=== PATIENT | female | born 1985 | race Caucasian/White ===

== ENCOUNTER 2020-04-29 07:20 | Inpatient (IN) | payer OTHER ==
[2020-04-29] MEDS: DEXTROSE 5%-LACTATED RINGERS 1,000 ML IV SCH (10:15)
[2020-04-29 10:25] LABS: BASO % 0.3 % (0-2.0); EOS % 0.3 % (0-4.5); HEMATOCRIT 37.9 % (32.4-45.2); HEMOGLOBIN 12.9 GM/dL (10.7-15.3); MCH 33.5 pg (25.7-33.7); MEAN CELL VOLUME 98.7 fl (80-96); MEAN PLT VOLUME 8.9 fl (7.5-11.1); MONO % 7.6 % (3.8-10.2); NEUT % 69.8 % (42.8-82.8); PLATELET COUNT 246 K/MM3 (134-434); RBC 3.84 M/mm3 (3.60-5.2); RDW 13.3 % (11.6-15.6); WHITE BLOOD COUNT 12.7 K/mm3 (4.0-10.0)
[2020-04-29 10:33] LABS: INR 0.87 (0.83-1.09); PROTHROMBIN TIME (PATIENT) 10.3 SEC (9.7-13.0)
[2020-04-29 10:36] LABS: ACTIVATED PTT 27.3 SECONDS (25.2-36.5)
[2020-04-29 10:48] LABS: BLOOD UREA NITROGEN 9.9 mg/dL (7-18); CALCIUM 9.2 mg/dL (8.5-10.1); CREATININE 0.4 mg/dL (0.55-1.3); POTASSIUM 3.9 mmol/L (3.5-5.1)
[2020-04-29 11:04] VITALS: BMI 24.0
[2020-04-29] MEDS ORDERED: BUTORPHANOL TARTRATE 1 MG/ML VIAL IVPB ONE (12:05)
[2020-04-29] MEDS ORDERED: DINOPROSTONE 10 MG VAGINAL SUPPOSITORY VG ONE (12:07)
--- NOTE | 2020-04-29 12:10 | HP ---
Past Medical History - Admission Chief Complaint: Vaginal spotting History of Present Illness: 35 yo , @ 40 weeks gestation, EDC 04/22/20, admitted for induction of labor. She c/o vaginal spotting and mild contractions pain. She was scheduled for induction of labor today. History Source: Patient Limitations to Obtaining History: No Limitations - Past Medical History ...: 1 ...Para: 0 ...Term: 0 ...: 0 ...Spon : 0 ...Induced : 0 ...Living Children: 0 ...Multiple Gestation: 0 ...EDC by Sono: 04/22/20 - Past Surgical History Past Surgical History: Yes: None Hx Myomectomy: No Hx Transabdominal Cerclage: No - Smoking History Smoking history: Never smoked - Alcohol/Substance Use Hx Alcohol Use: No - Social History Usual Living Arrangement: Yes: With Spouse History of Recent Travel: No Home Medications - Allergies Allergies/Adverse Reactions: Allergies Allergy/AdvReac Type Severity Reaction Status Date / Time No Known Allergies Allergy Verified 04/29/20 09:25 - Home Medications Home Medications: Ambulatory Orders Vitamins (Sjr) - 1 tab PO DAILY 04/29/20 Family Medical History Family History: Unremarkable Review of Systems - Review of Systems Constitutional: reports: No Symptoms Eyes: reports: No Symptoms HENT: reports: No Symptoms Neck: reports: No Symptoms Cardiovascular: reports: No Symptoms Respiratory: reports: No Symptoms Gastrointestinal: reports: No Symptoms Genitourinary: reports: Pain, Vaginal Bleeding Breasts: reports: No Symptoms Reported Musculoskeletal: reports: No Symptoms Integumentary: reports: No Symptoms Neurological: reports: No Symptoms Psychiatric: reports: No Symptoms Pain Intensity: 2 Physical Exam - Maternity Vital Signs: Vital Signs Temperature 98.3 F 04/29/20 10:56 Pulse Rate 90 04/29/20 10:56 Respiratory Rate 17 04/29/20 10:56 Blood Pressure 121/69 04/29/20 10:56 O2 Sat by Pulse Oximetry (%) Constitutional: Yes: No Distress Eyes: Yes: Conjunctiva Clear Neck: Yes: Supple Cardiovascular: Yes: Regular Rate and Rhythm Lungs: Clear to auscultation - Abdominal Exam/OB Number of Fetuses: Single Presentation: Vertex Intensity: Mild Category: I - Vaginal Exam/OB Vaginal Bleeding: Light Presentation: Vertex/Position Station: -3 - Physical Exam Musculoskeletal: Yes: WNL Extremities: Yes: WNL ...Motor Strength: WNL Psychiatric: Yes: Alert, Oriented - Labs Lab Results: CBC, BMP 04/29/20 09:45 04/29/20 09:45 Problem List - Problems (1) Postmaturity , 40-42 weeks gestation Problems reviewed: Yes Code(s): O48.0 - POST-TERM Assessment/Plan 40 weeks gestation Admit for induction of labor Analgesia as needed
[2020-04-29] MEDS ORDERED: PROMETHAZINE HCL 25 MG/1 ML VIAL IVPUSH ONE (12:45)
[2020-04-29] MEDS ORDERED: BUTORPHANOL TARTRATE 1 MG/ML VIAL ONE ×2 (22:28)
[2020-04-29] MEDS ORDERED: PROMETHAZINE HCL 25 MG/1 ML VIAL ONE (22:29)
[2020-04-30] MEDS ORDERED: OXYTOCIN 30 UNITS in 0.9% NS 30 UNIT/500 ML INFUS.BAG IVPB ONE (04:30)
[2020-04-30] MEDS: DEXTROSE 5%-LACTATED RINGERS 1,000 ML IV SCH (05:00)
[2020-04-30] MEDS ORDERED: OXYTOCIN 20 UNITS in 0.9% NS 20 UNIT/1,000 ML INFUS.BAG IV ONE ×2 (05:25→16:43)
[2020-04-30] MEDS ORDERED: OXYTOCIN 30 UNITS in 0.9% NS 30 UNIT/500 ML INFUS.BAG IVPB SCH (07:08)
[2020-04-30] MEDS ORDERED: PROMETHAZINE HCL 25 MG/1 ML VIAL ONE (09:16)
[2020-04-30] MEDS ORDERED: BUTORPHANOL TARTRATE 1 MG/ML VIAL ONE ×2 (09:16)
--- NOTE | 2020-04-30 10:04 | PN ---
Progress Note (short form) - Note Progress Note: Patient seen and evaluated. She c/o moderate discomfort. Cervidil was removed at 10pm last night and Pitocin has started at low dose. FHR : Reassuring, positive accelerations, moderate variability. [place] : + irregular contractions. VE : /-3 Brown discharge A/P : 40 weeks gestation Status post cervidil induction Consider epidural anesthesia at 4 cm Continue Pitocin augmentation Problem List - Problems (1) Postmaturity , 40-42 weeks gestation Code(s): O48.0 - POST-TERM
[2020-04-30] MEDS ORDERED: BUTORPHANOL TARTRATE 2 MG/ML VIAL IVPUSH PRN (10:06)
[2020-04-30] MEDS ORDERED: PROMETHAZINE HCL 25 MG/1 ML VIAL IVPB PRN (10:06)
[2020-04-30] MEDS ORDERED: FENTANYL/BUPIVACAINE/NS/PF - PCEA - 50 ML DISP.SYRIN EP ONE ×2 (11:56→17:59)
[2020-04-30] MEDS ORDERED: PCA PUMP NR ONE ×2 (11:57→22:12)
[2020-04-30] MEDS ORDERED: FENTANYL/BUPIVACAINE/NS/PF - PCEA - 50 ML DISP.SYRIN EP SCH (12:35)
[2020-04-30] MEDS ORDERED: NALOXONE HCL 0.4 MG/ML VIAL IVPUSH PRN (12:46)
[2020-04-30] MEDS ORDERED: BUPIVACAINE HCL/PF 0.25% (2.5MG/ML) 10 ML VIAL ONE (14:16)
[2020-04-30] MEDS ORDERED: LIDOCAINE HCL 1% PRESERVATIVE FREE - 30ML VIAL ONE (16:44)
[2020-04-30] MEDS ORDERED: IBUPROFEN 600 MG TABLET (FP) PO PRN (19:58)
[2020-04-30] MEDS ORDERED: WITCH HAZEL 50% (TUCKS) 40 PAD/JAR PAD TP PRN (19:58)
[2020-04-30] MEDS ORDERED: METHYLERGONOVINE MALEATE 0.2 MG/1 ML AMP IM PRN (19:58)
[2020-04-30] MEDS ORDERED: ACETAMINOPHEN 325 MG TABLET (FP) PO PRN (19:58)
[2020-04-30] MEDS ORDERED: BISACODYL 10 MG SUPP.RECT RC PRN (19:58)
[2020-04-30] MEDS ORDERED: BENZOCAINE 28 GM HEMORRHOIDAL OINTMENT TP PRN (19:58)
[2020-04-30] MEDS ORDERED: BENZOCAINE 20% 57 GM BOTTLE TP PRN (19:58)
[2020-04-30] MEDS ORDERED: OXYTOCIN 20 UNITS in 0.9% NS 20 UNIT/1,000 ML INFUS.BAG IV SCH (20:00)
--- NOTE | 2020-04-30 20:01 | PN ---
Delivery - Delivery Vaginal Delivery: Spontaneous Type of Anesthesia: Epidural Episiotomy/Laceration: 2nd degree EBL (cc): 300 Delivery, Single - [place] Feeding Plan Initial Plan: Exclusive throughout hospitalization Remarks - Remarks Remarks: Normal spontaneous vaginal delivery of a live girl over second degree laceration. Nose / Oropharynx suctioned @ perineum. Cord clamped and cut. Placenta expelled spontaneously intact. Laceration repaired with 2.0 Chromic. Mother in stable condition.
[2020-04-30] MEDS: FERROUS SO4 325 MG TABLET (FP) PO SCH (23:48)
[2020-05-01 08:40] LABS: BASO % 0.2 % (0-2.0); EOS % 0.2 % (0-4.5); HEMATOCRIT 35.1 % (32.4-45.2); HEMOGLOBIN 11.9 GM/dL (10.7-15.3); LYMPH % 15.4 % (8-40); MCH 33.7 pg (25.7-33.7); MCHC 33.8 g/dl (32.0-36.0); MEAN CELL VOLUME 99.7 fl (80-96); MONO % 6.5 % (3.8-10.2); NEUT % 77.7 % (42.8-82.8); PLATELET COUNT 255 K/MM3 (134-434); RBC 3.52 M/mm3 (3.60-5.2); RDW 13.3 % (11.6-15.6); WHITE BLOOD COUNT 25.3 K/mm3 (4.0-10.0)
[2020-05-01] MEDS: PRENATAL VITAMINS W/ FOLIC ACID TABLET (FP) PO SCH (09:26)
[2020-05-01] MEDS: FERROUS SO4 325 MG TABLET (FP) PO SCH ×2 (09:26→21:47)
[2020-05-01 12:44] LABS: ANISOCYTOSIS 0; MACROCYTOSIS 0; PLATELET ESTIMATE NORMAL
[2020-05-01] MEDS ORDERED: SENNOSIDES/DOCUSATE COMBO (SENNA PLUS) TABLET (UD) PO PRN (22:00)
[2020-05-01] MEDS ORDERED: CEFAZOLIN 1 GM in DEXTROSE 5%-WATER - 50 ML IVPB ONE (22:01)
--- NOTE | 2020-05-01 22:04 | PN ---
Post Progress Note - Subjective Subjective: 35 yo Para 1 status post vaginal delivery, seen and evaluated. Doing well. Post Day: 1 Type of Delivery: Vital Signs: Vital Signs Temperature 97.7 F 05/01/20 18:00 Pulse Rate 98 H 05/01/20 18:00 Respiratory Rate 18 05/01/20 18:00 Blood Pressure 114/74 05/01/20 18:00 O2 Sat by Pulse Oximetry (%) 98 04/30/20 21:00 Breast Exam: Yes: Soft Uterus: Yes: Fundus Firm Abdomen/GI: Yes: Abdomen soft, Tolerating PO Lochia: Yes: Rubra Lochia, amount: Moderate Extremities: Yes: Calves non-tender Perineum: Yes: Laceration (Healing) Activity: Ambulating - Labs Labs: CBC WBC 25.3 K/mm3 (4.0-10.0) H 05/01/20 07:35 RBC 3.52 M/mm3 (3.60-5.2) L 05/01/20 07:35 Hgb 11.9 GM/dL (10.7-15.3) 05/01/20 07:35 Hct 35.1 % (32.4-45.2) 05/01/20 07:35 MCV 99.7 fl (80-96) H 05/01/20 07:35 MCH 33.7 pg (25.7-33.7) 05/01/20 07:35 MCHC 33.8 g/dl (32.0-36.0) 05/01/20 07:35 RDW 13.3 % (11.6-15.6) 05/01/20 07:35 Plt Count 255 K/MM3 (134-434) 05/01/20 07:35 MPV 9.0 fl (7.5-11.1) 05/01/20 07:35 Absolute Neuts (auto) 19.7 K/mm3 (1.5-8.0) H 05/01/20 07:35 Neutrophils % 77.7 % (42.8-82.8) 05/01/20 07:35 Neutrophils % (Manual) 75.0 % (42.8-82.8) 05/01/20 07:35 Band Neutrophils % 0.0 % 05/01/20 07:35 Lymphocytes % 15.4 % (8-40) D 05/01/20 07:35 Lymphocytes % (Manual) 19.0 % (8-40) 05/01/20 07:35 Monocytes % 6.5 % (3.8-10.2) 05/01/20 07:35 Monocytes % (Manual) 6 % (3.8-10.2) 05/01/20 07:35 Eosinophils % 0.2 % (0-4.5) 05/01/20 07:35 Eosinophils % (Manual) 0.0 % (0-4.5) 05/01/20 07:35 Basophils % 0.2 % (0-2.0) 05/01/20 07:35 Basophils % (Manual) 0.0 % (0-2.0) 05/01/20 07:35 Myelocytes % (Man) 0 % (0-2) 05/01/20 07:35 Promyelocytes % (Man) 0 % (0-2) 05/01/20 07:35 Blast Cells % (Manual) 0 % (0-0) 05/01/20 07:35 Nucleated RBC % 0 % (0-0) 05/01/20 07:35 Metamyelocytes 0 % (0-2) 05/01/20 07:35 Hypochromia 0 05/01/20 07:35 Platelet Estimate Normal 05/01/20 07:35 Polychromasia 0 05/01/20 07:35 Poikilocytosis 0 05/01/20 07:35 Anisocytosis 0 05/01/20 07:35 Microcytosis 0 05/01/20 07:35 Macrocytosis 0 05/01/20 07:35 Problem List - Problems (1) Postmaturity , 40-42 weeks gestation Problems reviewed: Yes Code(s): O48.0 - POST-TERM (2) Status post normal vaginal delivery Problems reviewed: Yes Code(s): GHH8374 - Assessment/Plan Status post vaginal delivery Leukocytosis IV Ancef F/U repeat CBC in am
[2020-05-01] MEDS ORDERED: CEFAZOLIN 1 GM/D5W 1 GM/50 ML BAG IVPB ONE (22:17)
[2020-05-02 08:29] LABS: BASO % 0.1 % (0-2.0); EOS % 0.8 % (0-4.5); HEMATOCRIT 30.7 % (32.4-45.2); HEMOGLOBIN 10.4 GM/dL (10.7-15.3); LYMPH % 17.1 % (8-40); MCHC 33.9 g/dl (32.0-36.0); MEAN CELL VOLUME 97.5 fl (80-96); MEAN PLT VOLUME 8.9 fl (7.5-11.1); MONO % 5.7 % (3.8-10.2); NEUT % 76.3 % (42.8-82.8); PLATELET COUNT 237 K/MM3 (134-434); RBC 3.15 M/mm3 (3.60-5.2); RDW 13.2 % (11.6-15.6); WHITE BLOOD COUNT 17.3 K/mm3 (4.0-10.0)
[2020-05-02] MEDS: FERROUS SO4 325 MG TABLET (FP) PO SCH (09:29)
[2020-05-02] MEDS: PRENATAL VITAMINS W/ FOLIC ACID TABLET (FP) PO SCH (09:29)
--- NOTE | 2020-05-02 09:29 | DS ---
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 Vital Signs: Vital Signs Temperature 97.9 F 05/01/20 22:00 Pulse Rate 90 05/01/20 22:00 Respiratory Rate 18 05/01/20 22:00 Blood Pressure 127/72 05/01/20 22:00 O2 Sat by Pulse Oximetry (%) 98 04/30/20 21:00 Constitutional: Yes: Well Nourished Eyes: Yes: Conjunctiva Clear HENT: Yes: Atraumatic Neck: Yes: Supple Cardiovascular: Yes: Regular Rate and Rhythm Respiratory: Yes: Regular Gastrointestinal: Yes: Normal Bowel Sounds Vaginal Exam: Yes: Normal Cervix: Yes: Normal Uterus: Yes: Firm ....Post : Yes: Uterus firm Breast(s): Yes: WNL Musculoskeletal: Yes: WNL Neurological: Yes: Alert, Oriented ...Motor Strength: WNL Psychiatric: Yes: Alert, Oriented Labs: CBC, BMP 05/02/20 08:05 04/29/20 09:45 Delivery - Delivery Vaginal Delivery: Spontaneous Type of Anesthesia: Local, Epidural Episiotomy/Laceration: 2nd degree EBL (cc): 300 Delivery, Single - Stages of Labor Date 1st Stage Initiatied: 04/29/20 Time 1st Stage Initiated: 18:00 Date 2nd Stage Initiated: 04/30/20 Time 2nd Stage Initiated: 19:00 Date of Delivery: 04/30/20 Time of Delivery: 19:38 Time Placenta Delivered: 19:43 - Condition of Infant 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 - 1 Minute Total Score: 9 5 Minutes Total Score: 9 - [place] Feeding Plan Initial Plan: Exclusive throughout hospitalization Discharge Summary Problems reviewed: Yes Reason For Visit: INDUCTION OF LABOR Current Active Problems Postmaturity , 40-42 weeks gestation (Acute) Status post normal vaginal delivery (Acute) Procedures: Principal: Normal vaginal delivery Hospital Course: Routine care Health Concerns: None Plan of Treatment: Analgesia as needed F/U with MD in 6 weeks Goals: Resume regular activities in 6 weeks Condition: Good - Instructions Diet, Activity, Other Instructions: Regular diet No douching, no sexual intercourse x 6 weeks Disposition: HOME - Home Medications Comprehensive Discharge Medication List: Ambulatory Orders Vitamins (Sjr) - 1 tab PO DAILY 04/29/20
[2020-05-02 09:46] VITALS: BP 115/74; PULSE 103; TEMP 98
== END 2020-05-02 11:40 | disposition home or self-care (01) | DRG 560 ==
LOC: JLDR 07:20 → J3W 04-30 22:30
PROVIDERS: ADMIT Obstetrics & Gynecology; ATTEND Obstetrics & Gynecology
PROC: 10E0XZZ Delivery of Products of Conception, External Approach (ICD-10-PCS; principal; 2020-04-30)
PROC: 0KQM0ZZ Repair Perineum Muscle, Open Approach (ICD-10-PCS; 2020-04-30)
PROC: 0W8NXZZ Division of Female Perineum, External Approach (ICD-10-PCS; 2020-04-30)
DX: O70.1 Second degree perineal laceration during delivery (principal); O48.0 Post-term pregnancy; Z3A.40 40 weeks gestation of pregnancy; O26.893 Other specified pregnancy related conditions, third trimester; D72.829 Elevated white blood cell count, unspecified; Z37.0 Single live birth
CPT/HCPCS: 36415; 59409; 80048; 85025; 85610; 85730; 86780; 86850; 86900; 86901; 87389; U0003